=== PATIENT | male | born 1940 | race Caucasian/White ===

== ENCOUNTER → 2016-11-16 | Outpatient (CLI) | payer MEDICARE, OTHER ==
--- NOTE | 2016-11-18 05:57 | CT ---
Procedure: CT LUMBAR SPINE WITHOUT IV CONTRAST Exam date: 11/16/2016 10:59 AM CDT Ordering Provider: DEBI LARSON MD Clinical Indication: LUMBOSACRAL RADICULOPATHY Comparison: None Technique: Using a multislice scanner, sequential axial imaging was obtained of the lumbar spine. 2D sagittal and coronal reconstructed images were obtained. Findings: There is no acute fracture. Sagittal and coronal alignment is normal. Diffuse degenerative disc changes with disc desiccation and vacuum disc phenomenon at L3-L4. Multilevel degenerative endplate spurring noted. Mild facet arthrosis at L3-L4 and L4-L5. There is severe facet arthrosis at L5-S1. There is no osseous spinal canal nor neural foraminal narrowing. There is no lytic or sclerotic lesion. There is no paraspinal hematoma. The prevertebral soft tissues are normal. IMPRESSION 1. Degenerative disc changes and facet arthrosis in the lower lumbar spine without acute fracture or subluxation. Electronically signed by: Hipolito Kemp MD 11/18/2016 5:56 AM CDT
== END | disposition home or self-care (01) ==
LOC: CT 10:53
PROVIDERS: ATTEND Family Medicine
DX: M54.16 Radiculopathy, lumbar region (principal)

== ENCOUNTER → 2018-03-06 | Outpatient (CLI) | payer MEDICARE, OTHER | LOC: GMAM 14:54 | PROVIDERS: ATTEND Family Medicine | DX: Z57.8 Occupational exposure to other risk factors (principal) ==

== ENCOUNTER → 2018-05-17 | Outpatient (CLI) | payer MEDICARE, OTHER | LOC: GMATM 11:58 | PROVIDERS: ATTEND Nurse Practitioner Family | DX: R73.9 Hyperglycemia, unspecified (principal) ==

== ENCOUNTER → 2018-11-27 | Outpatient (CLI) | payer MEDICARE, OTHER | LOC: GMATM 16:50 | PROVIDERS: ATTEND Nurse Practitioner Family | DX: E11.9 Type 2 diabetes mellitus without complications (principal) ==

== ENCOUNTER → 2018-12-16 | Outpatient (CLI) | payer MEDICARE, OTHER | LOC: LAB.O 14:25 | PROVIDERS: ATTEND Internal Medicine Hematology & Oncology | DX: D69.6 Thrombocytopenia, unspecified (principal) ==

== ENCOUNTER → 2018-12-18 | Outpatient (CLI) | payer MEDICARE, OTHER ==
--- NOTE | 2018-12-19 07:29 | CT ---
EXAM DESCRIPTION: CT abdomen with contrast CLINICAL HISTORY: Thrombocytopenia COMPARISON: 06/07/2013 TECHNIQUE: Spiral CT with multiplanar reformatted images. Intravenous iodinated nonionic contrast This exam was performed according to our departmental dose-optimization program, which includes automated exposure control, adjustment of the mA and/or kV according to patient size and/or use of iterative reconstruction technique. FINDINGS: 1.3 cm gallstone in the gallbladder. No cholecystitis or choledocholithiasis. No biliary ductal obstruction Liver, pancreas, adrenal glands and kidneys are normal. Parapelvic renal cysts bilaterally left greater than right unchanged from previous study. Spleen is normal in size and appearance measuring approximately 9.5 x 10.8 x 4.3 cm. No mass lesion or focal inflammatory process in the stomach or the visualized small or large intestine. No mass or adenopathy in the omentum, mesentery or retroperitoneum No acute bony abnormality. Multilevel degenerative changes A tiny postinflammatory subpleural nodule right lung base seen on previous study IMPRESSION: 1.3 cm gallstone in the gallbladder Normal appearance of the spleen. No adenopathy Electronically signed by: Gil Hyatt MD 12/19/2018 7:26 AM CDT
== END ==
LOC: CT 08:29
PROVIDERS: ATTEND Internal Medicine Hematology & Oncology
DX: D69.6 Thrombocytopenia, unspecified (principal); K80.20 Calculus of gallbladder without cholecystitis without obstruction

== ENCOUNTER → 2019-07-03 | Outpatient (CLI) | payer MEDICARE, OTHER ==
--- NOTE | 2019-07-03 14:36 | US ---
EXAM DESCRIPTION: Venous,Lower Extremity LT: ULTRASOUND. CLINICAL HISTORY: LOCALIZED EDEMA. Left lower extremity COMPARISON: None Available. TECHNIQUE: Harrington-scale and doppler sonographic evaluation of the deep venous system of the left lower extremity. FINDINGS: Doppler evaluation shows normal color flow and normal phasicity and augmentation of the left common femoral vein, femoral vein, popliteal vein, greater saphenous vein, junction with the CFV. Also normal color flow and normal phasicity and augmentation of the peroneal, and posterior tibial vein. The left lower extremity deep veins were completely compressible; normal occlusion with transducer pressure. Harrington-scale survey showed no echogenic thrombus within these veins. IMPRESSION: 1. Duplex ultrasound evaluation of the left lower extremity deep venous system showing no evidence of thrombosis. Electronically signed by: Genaro Carrington MD 07/03/2019 2:35 PM [facility] REPRES[employer]
== END | disposition home or self-care (01) ==
LOC: US 09:00
PROVIDERS: ATTEND Family Medicine
DX: R60.0 Localized edema (principal)